=== PATIENT | female | born 1970 | race Caucasian/White ===

== ENCOUNTER 2016-09-02 08:10 | Emergency (ER) | payer SELFPAY ==
[~2016-09-02 08:10] MED LIST: ASPIRIN81 M2; PHENERGAN25 M1 DOB; ULTRAM PO
[2016-09-02] MEDS ORDERED: PRILOSEC (08:16)
[2016-09-02] MEDS ORDERED: METFORMIN (08:16)
[2016-09-02 08:54] LABS: URINE SOURCE CLEAN CATCH
[2016-09-02 08:56] LABS: URINE APPEARANCE CLEAR; URINE BILIRUBIN NEG (NEG); URINE BLOOD NEG (NEG); URINE COLOR YELLOW; URINE GLUCOSE NEG (NORM); URINE KETONE NEG (NEG); URINE LEUKOCYTE ESTERASE NEG (NEG); URINE NITRATE NEG (NEG); URINE PH 5.5 (5-8); URINE PROTEIN NEG (NEG); URINE UROBILINOGEN 0.2 MG/DL (NORM)
[2016-09-02 08:58] LABS: MICRO INDICATED? NO
== END 2016-09-02 09:53 | disposition home or self-care (01) ==
LOC: SED 08:10
PROVIDERS: Emergency Medicine
DX: S39.012A Strain of muscle, fascia and tendon of lower back, initial encounter (principal); Z87.442 Personal history of urinary calculi; Z88.0 Allergy status to penicillin; X58.XXXA Exposure to other specified factors, initial encounter; Y92.9 Unspecified place or not applicable
CPT/HCPCS: 81003; 84703; 96372; 99283; J1170; J2550